=== PATIENT | male | born 1995 ===

== ENCOUNTER 2018-06-11 13:27 | Emergency (ER) | payer BC ==
[2018-06-11 13:42] VITALS: BP 134/94
[2018-06-11] MEDS ORDERED: Tetan/Diph/Pertus SYR(Tdap)* 0.5 ML SYR(BOOSTRIX) use SYR IM ONE (13:52)
--- NOTE | 2018-06-11 13:52 | UC ---
Skin Complaint HPI - HPI Summary HPI Summary: 22 yo male presents with laceration to left 5th finger 2 days ago. He has been applying antibiotic ointment and covering it with a band-aid, but last night noticed redness, swelling, and increased pain with brownish/yellow discharge. He thinks he may be infected. Denies fever or chills. Thinks last tetanus was in 2011 - History of Current Complaint Chief Complaint: UCUpperExtremity Time Seen by Provider: 06/11/18 13:50 Stated Complaint: FINGER INJURY Hx Obtained From: Patient Onset/Duration: Sudden Onset Onset Severity: Mild Current Severity: Moderate Pain Intensity: 6 Pain Scale Used: 0-10 Numeric - Allergy/Home Medications Allergies/Adverse Reactions: Allergies Allergy/AdvReac Type Severity Reaction Status Date / Time No Known Allergies Allergy Verified 06/11/18 13:42 Home Medications: Home Medications Acetaminophen [APAP] 650 mg PO 06/11/18 [History] Thyromin 1 tab DAILY 06/11/18 [History] Review of Systems Constitutional: Negative Skin: Other - Wound infection left 5th finger Respiratory: Negative Cardiovascular: Negative Neurovascular: Negative Neurological: Negative Psychological: Negative All Other Systems Reviewed And Are Negative: Yes PMH/Surg Hx/FS Hx/Imm Hx - Additional Past Medical History Additional PMH: None - Surgical History Surgical History: None - Family History Known Family History: Positive: None - Social History Occupation: Employed Full-time Lives: With Family Alcohol Use: Weekly Substance Use Type: None Smoking Status (MU): Heavy Every Day Tobacco Smoker Type: Cigarettes Physical Exam - Summary Physical Exam Summary: GENERAL: NAD. WDWN. No pain distress. SKIN: LEFT 5th digit: 5mm linear laceration overlying the PIP. Moderate edema and TTP. Mild thin yellow drainage expressed. Mild edema and erythema surrounding wound and extending down to the MCP. NECK: Supple. Nontender. No lymphadenopathy. CHEST: No accessory muscle use. Breathing comfortably and in no distress. CV: Pulses intact. Cap refill <2seconds MSK: FROM at 5th left finger NEURO: Alert. PSYCH: Age appropriate behavior. Triage Information Reviewed: Yes Vital Signs: Initial Vital Signs Temp 98.7 F 06/11/18 13:38 Pulse 63 06/11/18 13:38 Resp 18 06/11/18 13:38 BP 134/94 06/11/18 13:38 Pulse Ox 99 06/11/18 13:38 Vital Signs Reviewed: Yes Course/Dx - Course Course Of Treatment: A wound culture was obtained. Will place him on keflex and advise to apply neosporin and keep area covered until well healed. tdap updated today - Diagnoses Provider Diagnoses: Wound infection left 5th digit Discharge - Sign-Out/Discharge Documenting (check all that apply): Patient Departure All imaging exams completed and their final reports reviewed: No Studies - Discharge Plan Condition: Stable Disposition: HOME Prescriptions: Cephalexin CAP* [Keflex CAP*] 500 mg PO TID #21 cap Patient Education Materials: Wound Infection (ED) Referrals: No Primary Care Phys,NOPCP [Primary Care Provider] - Additional Instructions: If you develop a fever, shortness of breath, chest pain, new or worsening symptoms - please call your PCP or go to the ED. Your blood pressure was high at todays visit. Please see your primary provider within 4 weeks for recheck and re-evaluation. 1) Change the dressing daily - Billing Disposition and Condition Condition: STABLE Disposition: Home
== END 2018-06-11 14:19 | disposition home or self-care (01) ==
LOC: UCEAST 13:27
DX: S61.217A Laceration without foreign body of left little finger without damage to nail, initial encounter (principal); L08.9 Local infection of the skin and subcutaneous tissue, unspecified; W26.9XXA Contact with unspecified sharp object(s), initial encounter; Y92.9 Unspecified place or not applicable; Z23 Encounter for immunization; F17.210 Nicotine dependence, cigarettes, uncomplicated
CPT/HCPCS: 87070; 87077; 87186; 87205; 90471; 90715; 99202; G0463